=== PATIENT | female | born 1985 | race Caucasian/White ===

== ENCOUNTER → 2016-09-11 | Outpatient (CLI) | payer BC ==
[~2016-09-11] MED LIST: FAMO-137 PO; METH10TA2 PO; METO-230 PO; NORG1TAB42 PO
--- NOTE | 2016-09-11 16:31 | DI ---
INDICATION: ITS.REASON: R06.02 SOB PROCEDURE: CHEST 2-VIEWS UPRIGHT (PA \T\ LAT) Encounter: Initial COMPARISON: June 19, 2013 FINDINGS: The lungs are clear without evidence of focal abnormal airspace opacity. There is no pleural effusion or pneumothorax. The heart size, mediastinal contours and pulmonary vascularity are within normal limits. There is no significant skeletal abnormality. IMPRESSION: No acute cardiopulmonary disease. .
== END ==
LOC: IMA 15:13
PROVIDERS: ATTEND Registered Nurse
DX: R06.02 Shortness of breath (principal)